=== PATIENT | male | born 1985 | race Two or more races ===

== ENCOUNTER 2024-07-10 21:23 | Emergency (ER) | payer OTHER ==
[~2024-07-10] VITALS: Ht 180.3 cm; Wt 109.8 kg
[2024-07-10] MEDS ORDERED: PREDNISONE20 MG PO (22:55)
[2024-07-10] MEDS ORDERED: DEXAMETHASONE SOD PHOS 10 MG/ML VIAL IM ONE (23:00)
[2024-07-10] MEDS ORDERED: NAPROXEN 500 MG TAB PO ONE (23:00)
[2024-07-10] MEDS ORDERED: HYDROCODONE BIT/ACETAMINOPHEN 5/325 MG 1 TAB HOME.PACK PO ONE (23:00)
[2024-07-10 23:30] VITALS: BP 134/89
== END 2024-07-10 23:50 | disposition home or self-care (01) ==
LOC: ED 21:23
DX: M10.9 Gout, unspecified (principal); Z88.0 Allergy status to penicillin
CPT/HCPCS: 96372; 99283; A9270; J1100